=== PATIENT | female | born 1995 | race Caucasian/White ===

== ENCOUNTER 2022-05-20 10:30 | Outpatient (CLI) | payer OTHER, SELFPAY ==
--- NOTE | ~2022-05-20 | US_ITS ---
EXAMINATION: US pelvic complete DATE: 05/20/2022 10:56 INDICATION: Infertility. TECHNIQUE: Multiple transabdominal sonographic images of the pelvis were obtained. COMPARISON: Ultrasound 04/21/2015 FINDINGS: The uterus measures 6.6 x 2.7 x 4.0 cm. There is no free fluid in the pelvis. The endometrial complex measures 4 mm in thickness. The right ovary measures 3.3 x 1.7 x 3.0 cm. The left ovary measures 3.5 x 2.2 x 2.3 cm. IMPRESSION: 1. Normal pelvis. Reviewed, dictated and finalized at location A. IOLOGY SPECIALIST IMPRESSION: 1. Normal pelvis.
== END 2022-05-20 10:31 ==
LOC: MICIMG 10:33
PROVIDERS: PCP Family Medicine; Visit Provider Physician Assistant
DX: N97.9 Female infertility, unspecified (principal)
CPT/HCPCS: 76856